=== PATIENT | male | born 1970 | race Caucasian/White ===

== ENCOUNTER → 2016-09-06 | Outpatient (CLI) | payer BC ==
[2016-09-06 11:03] LABS: Basophils % (A) 1 %; CH 29.7; CHCM 34.4; Eosinophils # (A) 0.4 k/uL (0-0.7); Eosinophils % (A) 5 %; HDW 2.94; HGB 15.8 gm/dL (13.0-17.5); Luc # (Auto) 0.14; Luc % (Auto) 2; Lymphocytes # (A) 1.8 k/uL (1.0-4.8); Lymphocytes % (A) 25 %; MCH 28.5 pg (25.0-35.0); MCHC 32.8 g/dL (31.0-37.0); MCV 86.8 fL (80.0-100.0); Mean Platelet Volume 6.9; Monocytes # (A) 0.4 k/uL (0-1.0); Monocytes % (A) 5 %; Neutrophils # (A) 4.7 k/uL (1.3-7.7); Neutrophils % (A) 63 %; RBC 5.53 m/uL (4.30-5.90); RDW 13.9 % (11.5-15.5); WBC 7.4 k/uL (3.8-10.6); WBC (Perox) 7.15
[2016-09-06 11:17] LABS: ALT 35 U/L (21-72); AST 21 U/L (17-59); Anion Gap 11 mmol/L; Blood Urea Nitrogen 16 mg/dL (9-20); Calcium 9.3 mg/dL (8.4-10.2); Carbon Dioxide 25 mmol/L (22-30); Chloride 108 mmol/L (98-107); Glucose 102 mg/dL (74-99); Non-African American GFR(MDRD) >60 (>60 ml/min/1.73 sqM); Potassium 3.9 mmol/L (3.5-5.1); Sodium 144 mmol/L (137-145)
== END ==
LOC: LABWHC1 10:36
PROVIDERS: ATTEND Psychiatry & Neurology Neurology
DX: G35 Multiple sclerosis (principal); E55.9 Vitamin D deficiency, unspecified
CPT/HCPCS: 36415; 80048; 82306; 84450; 84460; 85025

== ENCOUNTER → 2017-04-26 | Outpatient (CLI) | payer BC ==
[2017-04-26 08:06] LABS: HCT 50.4 % (39.0-53.0); HGB 16.4 gm/dL (13.0-17.5); MCH 28.2 pg (25.0-35.0); MCHC 32.5 g/dL (31.0-37.0); MCV 86.8 fL (80.0-100.0); Platelet Count 286 k/uL (150-450); RDW 13.6 % (11.5-15.5); WBC 9.2 k/uL (3.8-10.6)
[2017-04-26 15:46] LABS: Vitamin D 25 Hydroxy 15.4 ng/mL (30.0-100.0)
== END | disposition home or self-care (01) ==
LOC: LABWHC1 07:10
PROVIDERS: ATTEND Psychiatry & Neurology Neurology
DX: Z86.39 Personal history of other endocrine, nutritional and metabolic disease (principal)
CPT/HCPCS: 36415; 82306; 82310; 82607; 85027

== ENCOUNTER 2018-12-14 07:54 | Emergency (ER) | payer OTHER ==
--- NOTE | 2018-12-14 08:15 | ED ---
General Adult HPI - General Chief complaint: Abdominal Pain Stated complaint: rt abdominal pain Time Seen by Provider: 12/14/18 08:00 Source: patient, RN notes reviewed Mode of arrival: ambulatory Limitations: no limitations - History of Present Illness Initial comments: This is a 48-year-old male who presents emergency department stating that he has had right lower abdominal pain since 4:30 this morning. Patient states it woke him up at 4:30 with severe pain. Patient states yesterday prior to going to bed he felt fine. Patient denies any nausea vomiting or diarrhea. Patient denies any fever chills per patient denies any dysuria hematuria urinary frequency. Patient states pain does come and go it seems to be better if he stands. Patient states currently he has no pain. Patient denies any chest pain difficulty breathing shortness of breath. Patient denies any back pain. Patient denies any pain radiating into his groin or testicle area. - Related Data Home Medications Medication Instructions Recorded Confirmed Glatiramer Acetate [Copaxone] 40 mg SQ MOWEFR 10/15/14 12/14/18 Ibuprofen [Motrin Ib] 400 mg PO Q6H PRN 12/14/18 12/14/18 Previous Rx's Medication Instructions Recorded Hydrocodone/Acetaminophen [[place] 1 each PO Q4HR PRN #14 tab 12/14/18 5-325] Ketorolac [Toradol] 10 mg PO Q6HR #15 tab 12/14/18 Tamsulosin [Flomax] 0.4 mg PO DAILY #10 cap 12/14/18 Allergies Allergy/AdvReac Type Severity Reaction Status Date / Time No Known Allergies Allergy Verified 12/14/18 08:27 Review of Systems ROS Statement: Those systems with pertinent positive or pertinent negative responses have been documented in the HPI. ROS Other: All systems not noted in ROS Statement are negative. Past Medical History Additional Past Medical History / Comment(s): MS History of Any Multi-Drug Resistant Organisms: None Reported Past Surgical History: Appendectomy Past Psychological History: No Psychological Hx Reported Smoking Status: Never smoker Past Alcohol Use History: None Reported Past Drug Use History: None Reported General Exam - General Exam Comments Initial Comments: GENERAL: Patient is well-developed and well-nourished. Patient is nontoxic and well- hydrated and is in moderate distress. ENT: Neck is soft and supple. No significant lymphadenopathy is noted. Oropharynx is clear. Moist mucous membranes. Neck has full range of motion without eliciting any pain. EYES: The sclera were anicteric and conjunctiva were pink and moist. Extraocular movements were intact and pupils were equal round and reactive to light. Eyelids were unremarkable. PULMONARY: Unlabored respirations. Good breath sounds bilaterally. No audible rales rhonchi or wheezing was noted. CARDIOVASCULAR: There is a regular rate and rhythm without any murmurs gallops or rubs. ABDOMEN: Soft and nontender with normal bowel sounds. No palpable organomegaly was noted. There is no palpable pulsatile mass. SKIN: Skin is clear with no lesions or rashes and otherwise unremarkable. NEUROLOGIC: Patient is alert and oriented x3. Cranial nerves II through XII are grossly intact. Motor and sensory are also intact. Normal speech, volume and content. Symmetrical smile. MUSCULOSKELETAL: Normal extremities with adequate strength and full range of motion. LYMPHATICS: No significant lymphadenopathy is noted PSYCHIATRIC: Normal psychiatric evaluation. Limitations: no limitations Course Vital Signs 12/14/18 12/14/18 08:03 08:52 Temperature 97.9 F Pulse Rate 63 71 Respiratory 18 20 Rate Blood Pressure 160/119 150/104 O2 Sat by Pulse 99 98 Oximetry Medical Decision Making - Medical Decision Making CAT scan shows a 5 mm proximal ureteral stone. Patient received Toradol and Dilaudid in the emergency department pain had completely resolved after both were given. Patient will follow-up with urology. Patient will be discharged with Flomax Toradol and [place]. - Lab Data Result diagrams: 12/14/18 08:30 12/14/18 08:30 Lab Results 12/14/18 12/14/18 12/14/18 Range/Units 08:30 08:30 08:55 WBC 8.7 (3.8-10.6) k/uL RBC 5.64 (4.30-5.90) m/uL Hgb 16.2 (13.0-17.5) gm/dL Hct 47.0 (39.0-53.0) % MCV 83.2 (80.0-100.0) fL MCH 28.7 (25.0-35.0) pg MCHC 34.5 (31.0-37.0) g/dL RDW 13.6 (11.5-15.5) % Plt Count 311 (150-450) k/uL Neutrophils % 72 % Lymphocytes % 18 % Monocytes % 4 % Eosinophils % 3 % Basophils % 1 % Neutrophils # 6.3 (1.3-7.7) k/uL Lymphocytes # 1.6 (1.0-4.8) k/uL Monocytes # 0.4 (0-1.0) k/uL Eosinophils # 0.3 (0-0.7) k/uL Basophils # 0.1 (0-0.2) k/uL Sodium 143 (137-145) mmol/L Potassium 4.2 (3.5-5.1) mmol/L Chloride 109 H (98-107) mmol/L Carbon Dioxide 23 (22-30) mmol/L Anion Gap 11 mmol/L BUN 15 (9-20) mg/dL Creatinine 1.38 H (0.66-1.25) mg/dL Est GFR (CKD-EPI)AfAm 70 (>60 ml/min/1.73 sqM) Est GFR (CKD-EPI)NonAf 61 (>60 ml/min/1.73 sqM) Glucose 147 H (74-99) mg/dL Calcium 9.2 (8.4-10.2) mg/dL Total Bilirubin 0.6 (0.2-1.3) mg/dL AST 24 (17-59) U/L ALT 31 (21-72) U/L Alkaline Phosphatase 98 (38-126) U/L Total Protein 7.5 (6.3-8.2) g/dL Albumin 4.2 (3.5-5.0) g/dL Amylase 69 (30-110) U/L Lipase 139 (23-300) U/L Urine Color Yellow Urine Appearance Cloudy (Clear) Urine pH 6.0 (5.0-8.0) Ur Specific [place] 1.024 (1.001-1.035) Urine Protein Trace H (Negative) Urine Glucose (UA) Negative (Negative) Urine Ketones Negative (Negative) Urine Blood Moderate H (Negative) Urine Nitrite Negative (Negative) Urine Bilirubin Negative (Negative) Urine Urobilinogen <2.0 (<2.0) mg/dL Ur Leukocyte Esterase Small H (Negative) Urine RBC 93 H (0-5) /hpf Urine WBC 12 H (0-5) /hpf Ur Squamous Epith Cells <1 (0-4) /hpf Urine Mucus Occasional H (None) /hpf Disposition Clinical Impression: Kidney stone on right side Disposition: HOME SELF-CARE Condition: Good Instructions (If sedation given, give patient instructions): Kidney Stones (ED), How to Strain Your Urine (ED) Prescriptions: Tamsulosin [Flomax] 0.4 mg PO DAILY #10 cap Hydrocodone/Acetaminophen [[place] 5-325] 1 each PO Q4HR PRN #14 tab PRN Reason: Pain Ketorolac [Toradol] 10 mg PO Q6HR #15 tab Is patient prescribed a controlled substance at d/c from ED?: Yes When asked, does pt state using other controlled substances?: No If prescribed controlled substance>3 days was MAPS reviewed?: Prescribed <3 Days If opioid is for acute pain is fill amount 7 days or less?: Yes If Rx opioid, was Start Talking consent form obtained?: Yes Referrals: Rodney Hill MD [Primary Care Provider] - 1-2 days Time of Disposition: 10:21
[2018-12-14] MEDS: KETOROLAC 30 MG/ML 1 ML VIAL IVP STA (08:21)
[2018-12-14] MEDS: SODIUM CHLORIDE 0.9% 500 ML 500 ML IV STA (08:22)
[2018-12-14 08:37] LABS: Basophils # (A) 0.1 k/uL (0-0.2); Basophils % (A) 1 %; Eosinophils # (A) 0.3 k/uL (0-0.7); Eosinophils % (A) 3 %; HGB 16.2 gm/dL (13.0-17.5); Lymphocytes # (A) 1.6 k/uL (1.0-4.8); Lymphocytes % (A) 18 %; MCH 28.7 pg (25.0-35.0); MCHC 34.5 g/dL (31.0-37.0); MCV 83.2 fL (80.0-100.0); Mean Platelet Volume 6.5; Monocytes # (A) 0.4 k/uL (0-1.0); Monocytes % (A) 4 %; Neutrophils # (A) 6.3 k/uL (1.3-7.7); Neutrophils % (A) 72 %; Platelet Count 311 k/uL (150-450); RBC 5.64 m/uL (4.30-5.90); RDW 13.6 % (11.5-15.5); WBC 8.7 k/uL (3.8-10.6)
[2018-12-14 08:44] LABS: Albumin 4.2 g/dL (3.5-5.0); Calcium 9.2 mg/dL (8.4-10.2); Potassium 4.2 mmol/L (3.5-5.1); Total Bilirubin 0.6 mg/dL (0.2-1.3); Total Protein 7.5 g/dL (6.3-8.2)
--- NOTE | 2018-12-14 09:04 | XR ---
EXAMINATION TYPE: XR KUB DATE OF EXAM: 12/14/2018 8:45 AM CLINICAL HISTORY: Right lower quadrant pain. History of appendectomy. TECHNIQUE: Single upright image of the abdomen is obtained. COMPARISON: 11/13/2012. FINDINGS: The liver appears enlarged extending just past the iliac crest. No dilated large or small b owel. Mild colonic fecal stasis in the right hemicolon and rectum. Lung bases aerated. No suspicious calcifications are seen in the abdomen nor pelvis. Osseous structures appear grossly intact. No evide nce of pneumoperitoneum. IMPRESSION: Nonobstructive bowel gas pattern.
[2018-12-14 09:21] LABS: Appearance,Urine Cloudy (Clear); Bilirubin,Urine Negative (Negative); Blood,Urine Moderate (Negative); Color,Urine Yellow; Glucose,Urine (UA) Negative (Negative); Ketones,Urine Negative (Negative); Leukocyte Esterase,Urine Small (Negative); Mucus,Urine Occasional /hpf; Nitrite,Urine Negative (Negative); Protein,Urine Trace (Negative); RBC,Urine 93 /hpf (0-5); Specific Gravity,Urine 1.024 (1.001-1.035); Squamous Epithelial Cell,Urine <1 /hpf (0-4); Urobilinogen,Urine <2.0 mg/dL (<2.0); WBC,Urine 12 /hpf (0-5)
--- NOTE | 2018-12-14 09:55 | CT ---
EXAMINATION TYPE: CT abdomen pelvis wo con DATE OF EXAM: 12/14/2018 COMPARISON: 11/13/2012 HISTORY: 48-year-old male Pain under Rt rib cage CT DLP: 937.9 mGycm. Automated exposure control for dose reduction was used. TECHNIQUE: Contiguous axial scanning of the abdomen and pelvis without IV contrast. Coronal and sagit taina reconstructions performed. FINDINGS: Heart normal size without pericardial effusion. Strandy atelectasis in the lower lungs without pleura l effusion. Small hiatal hernia. Noncontrast appearance of the liver, gallbladder, adrenal glands, and pancreas show no gross abnormal ity. Spleen mildly enlarged at 16.4 cm on coronal series. Tiny subcentimeter cortical hypodensity anterior left kidney too small fracture CT characterization, probable tiny cyst. Punctate 3 mm calculus upper pole left kidney. Punctate 1 mm nonobstructive calculus mid to lower pole right kidney. However, the right kidney shows mild perinephric edema and mild hydronephrosis with a 5 mm calculus just beyond the right UPJ. Small to moderate-sized periumbilical hernia redemonstrated measuring 3.5 cm wide. No dilated small bowel, free fluid, or free air. Some surgical material in the right lower quadrant from prior appendectomy. Mild overall stool burden . No pericolonic inflammatory change. Bladder not distended. Prostate gland measures 4.4 cm wide. Some scattered prominent nonenlarged ingu inal lymph nodes. No abnormal fluid collection in the pelvis. Bones: Mild degenerative changes at the hips. No osseous destructive process. IMPRESSION: 1. 5 mm calculus upper right ureter just beyond the UPJ with mild obstructive uropathy. 2. Additional punctate nonobstructive calculus in each kidney. 3. Splenomegaly (16.4 cm). Clinically correlate. Small hiatal hernia.
[2018-12-14] MEDS: ONDANSETRON 4 MG/2 ML VIAL IVP STA (10:00)
[2018-12-14] MEDS: HYDROmorphone 0.5 MG/0.5 ML SYRINGE IVP STA (10:01)
[2018-12-14 10:32] VITALS: BP 109/63; PULSE 80; RESP 18; TEMP 98.3
== END 2018-12-14 10:32 | disposition home or self-care (01) ==
LOC: EC 07:54
DX: N20.0 Calculus of kidney (principal); G35 Multiple sclerosis; Z79.899 Other long term (current) drug therapy; Z98.890 Other specified postprocedural states
CPT/HCPCS: 36415; 80053; 82150; 83690; 85025; 81001; 74018; 74176; 96374; 96375 ×2; 99284; J2405; J1885; J1170

== ENCOUNTER 2020-02-13 13:45 | Emergency (ER) | payer OTHER ==
[2020-02-13 13:48] VITALS: RESP 18; TEMP 97.4
[2020-02-13] MEDS ORDERED: KETOROLAC 15 MG/ML 1 ML VIAL IVP STA (14:04)
[2020-02-13] MEDS ORDERED: ONDANSETRON 4 MG/2 ML VIAL IVP STA (14:04)
[2020-02-13] MEDS ORDERED: SODIUM CHLORIDE 0.9% 2,000 ML IV STA (14:04)
[2020-02-13] MEDS ORDERED: MORPHINE SULFATE 4 MG/ML SYRINGE IV STA (14:04)
--- NOTE | 2020-02-13 14:07 | ED ---
Abdominal Pain HPI - General Chief Complaint: Abdominal Pain Stated Complaint: ABD pain Time Seen by Provider: 02/13/20 13:54 Source: patient, RN notes reviewed, old records reviewed Mode of arrival: ambulatory Limitations: no limitations - History of Present Illness Initial Comments: 49-year-old male presents emergency department today with chief complaint of onset of the sided lower abdominal pain starting this morning and noticed he had blood in his urine. Patient reports he had history of kidney stones in the past. Patient reports this made him concerned noticing the blood in his urine. Patient reports that he never required lithotripsy or surgery to have other stones removed. He denies any fevers or chills. Denies dysuria. Denies any nausea or vomiting. - Related Data Home Medications Medication Instructions Recorded Confirmed Glatiramer Acetate [Copaxone] 40 mg SQ MOWEFR 10/15/14 12/14/18 Ibuprofen [Motrin Ib] 400 mg PO Q6H PRN 12/14/18 12/14/18 Previous Rx's Medication Instructions Recorded Hydrocodone/Acetaminophen [[place] 1 each PO Q4HR PRN #14 tab 12/14/18 5-325] Ketorolac [Toradol] 10 mg PO Q6HR #15 tab 12/14/18 Tamsulosin [Flomax] 0.4 mg PO DAILY #10 cap 12/14/18 HYDROcodone/APAP 5-325MG [[place] 1 tab PO Q6HR PRN #10 tab 02/13/20 5-325] Ibuprofen [Motrin] 600 mg PO Q8HR PRN #20 tab 02/13/20 Ondansetron Odt [Zofran Odt] 4 mg PO Q8HR PRN #12 tab 02/13/20 Tamsulosin [Flomax] 0.4 mg PO DAILY #7 cap 02/13/20 Tamsulosin [Flomax] 0.4 mg PO DAILY #7 cap 02/13/20 Allergies Allergy/AdvReac Type Severity Reaction Status Date / Time No Known Allergies Allergy Verified 02/13/20 13:48 Review of Systems ROS Statement: Those systems with pertinent positive or pertinent negative responses have been documented in the HPI. ROS Other: All systems not noted in ROS Statement are negative. Past Medical History Additional Past Medical History / Comment(s): MS History of Any Multi-Drug Resistant Organisms: None Reported Past Surgical History: Appendectomy Past Psychological History: No Psychological Hx Reported Smoking Status: Never smoker Past Alcohol Use History: None Reported Past Drug Use History: None Reported General Exam - General Exam Comments Initial Comments: 49-year-old male. Alert and oriented. No distress. Limitations: no limitations General appearance: alert, in no apparent distress Head exam: Present: atraumatic, normocephalic, normal inspection Eye exam: Present: normal appearance, PERRL, EOMI. Absent: scleral icterus, conjunctival injection, periorbital swelling ENT exam: Present: normal exam, mucous membranes moist Neck exam: Present: normal inspection. Absent: tenderness, meningismus, l ymphadenopathy Respiratory exam: Present: normal lung sounds bilaterally. Absent: respiratory distress, wheezes, rales, rhonchi, stridor Cardiovascular Exam: Present: regular rate, normal rhythm, normal heart sounds. Absent: systolic murmur, diastolic murmur, rubs, gallop, clicks GI/Abdominal exam: Present: soft, normal bowel sounds. Absent: distended, tenderness, guarding, rebound, rigid Extremities exam: Present: normal inspection, full ROM, normal capillary refill. Absent: tenderness, pedal edema, joint swelling, calf tenderness Back exam: Present: normal inspection Neurological exam: Present: alert, oriented X3, CN II-XII intact Psychiatric exam: Present: normal affect, normal mood Skin exam: Present: warm, dry, intact, normal color. Absent: rash Course Vital Signs 02/13/20 13:46 Temperature 97.4 F L Pulse Rate 65 Respiratory 18 Rate Blood Pressure 142/98 O2 Sat by Pulse 97 Oximetry Medical Decision Making - Medical Decision Making 49-year-old male presents the emergency department with chief complaint of hematuria today and left lower abdominal pain. Patient lab was reviewed and he has significant hematuria. No signs of infection with the urine. Kidney function is stable. Weight red blood cell count are within normal limits. Patient had computed tomography scan which shows a 4 mm left-sided UVJ stone. Patient informed this should likely passed without surgical intervention.. Patient computed tomography scan also mentioned umbilical fat-containing hernia. Also mentioned a 2.37 m sebaceous cyst on posterior back. This is consistent with physical exam findings. I discussed at this time Patient will be treated with nausea medicine and pain medication and that this stone should pass without surgical intervention but will be given referral urology. I discussed close follow-up and discussed return parameters. - Lab Data Result diagrams: 02/13/20 14:11 02/13/20 14:11 Lab Results 02/13/20 02/13/20 02/13/20 Range/Units 14:11 14:11 14:11 WBC 11.4 H (3.8-10.6) k/uL RBC 5.76 (4.30-5.90) m/uL Hgb 16.5 (13.0-17.5) gm/dL Hct 50.2 (39.0-53.0) % MCV 87.3 (80.0-100.0) fL MCH 28.6 (25.0-35.0) pg MCHC 32.8 (31.0-37.0) g/dL RDW 13.7 (11.5-15.5) % Plt Count 329 (150-450) k/uL Neutrophils % 81 % Lymphocytes % 12 % Monocytes % 4 % Eosinophils % 2 % Basophils % 1 % Neutrophils # 9.2 H (1.3-7.7) k/uL Lymphocytes # 1.4 (1.0-4.8) k/uL Monocytes # 0.5 (0-1.0) k/uL Eosinophils # 0.2 (0-0.7) k/uL Basophils # 0.1 (0-0.2) k/uL PT 10.0 (9.0-12.0) sec INR 1.0 (<1.2) APTT 25.0 (22.0-30.0) sec Sodium (137-145) mmol/L Potassium (3.5-5.1) mmol/L Chloride (98-107) mmol/L Carbon Dioxide (22-30) mmol/L Anion Gap mmol/L BUN (9-20) mg/dL Creatinine (0.66-1.25) mg/dL Est GFR (CKD-EPI)AfAm (>60 ml/min/1.73 sqM) Est GFR (CKD-EPI)NonAf (>60 ml/min/1.73 sqM) Glucose (74-99) mg/dL Calcium (8.4-10.2) mg/dL Total Bilirubin (0.2-1.3) mg/dL AST (17-59) U/L ALT (4-49) U/L Alkaline Phosphatase (38-126) U/L Total Protein (6.3-8.2) g/dL Albumin (3.5-5.0) g/dL Amylase (30-110) U/L Lipase (23-300) U/L Urine Color Light Red Urine Appearance Cloudy (Clear) Urine pH 8.5 H (5.0-8.0) Ur Specific [place] 1.026 (1.001-1.035) Urine Protein 1+ H (Negative) Urine Glucose (UA) Negative (Negative) Urine Ketones 2+ H (Negative) Urine Blood Large H (Negative) Urine Nitrite Negative (Negative) Urine Bilirubin Negative (Negative) Urine Urobilinogen 3.0 (<2.0) mg/dL Ur Leukocyte Esterase Trace H (Negative) Urine RBC >182 H (0-5) /hpf Urine WBC 5 (0-5) /hpf Ur Squamous Epith Cells 3 (0-4) /hpf Urine Mucus Rare H (None) /hpf 02/13/20 Range/Units 14:11 WBC (3.8-10.6) k/uL RBC (4.30-5.90) m/uL Hgb (13.0-17.5) gm/dL Hct (39.0-53.0) % MCV (80.0-100.0) fL MCH (25.0-35.0) pg MCHC (31.0-37.0) g/dL RDW (11.5-15.5) % Plt Count (150-450) k/uL Neutrophils % % Lymphocytes % % Monocytes % % Eosinophils % % Basophils % % Neutrophils # (1.3-7.7) k/uL Lymphocytes # (1.0-4.8) k/uL Monocytes # (0-1.0) k/uL Eosinophils # (0-0.7) k/uL Basophils # (0-0.2) k/uL PT (9.0-12.0) sec INR (<1.2) APTT (22.0-30.0) sec Sodium 141 (137-145) mmol/L Potassium 4.6 (3.5-5.1) mmol/L Chloride 107 (98-107) mmol/L Carbon Dioxide 26 (22-30) mmol/L Anion Gap 8 mmol/L BUN 20 (9-20) mg/dL Creatinine 1.33 H (0.66-1.25) mg/dL Est GFR (CKD-EPI)AfAm 73 (>60 ml/min/1.73 sqM) Est GFR (CKD-EPI)NonAf 63 (>60 ml/min/1.73 sqM) Glucose 124 H (74-99) mg/dL Calcium 9.4 (8.4-10.2) mg/dL Total Bilirubin 1.3 (0.2-1.3) mg/dL AST 35 (17-59) U/L ALT 26 (4-49) U/L Alkaline Phosphatase 83 (38-126) U/L Total Protein 7.5 (6.3-8.2) g/dL Albumin 4.4 (3.5-5.0) g/dL Amylase 57 (30-110) U/L Lipase 76 (23-300) U/L Urine Color Urine Appearance (Clear) Urine pH (5.0-8.0) Ur Specific [place] (1.001-1.035) Urine Protein (Negative) Urine Glucose (UA) (Negative) Urine Ketones (Negative) Urine Blood (Negative) Urine Nitrite (Negative) Urine Bilirubin (Negative) Urine Urobilinogen (<2.0) mg/dL Ur Leukocyte Esterase (Negative) Urine RBC (0-5) /hpf Urine WBC (0-5) /hpf Ur Squamous Epith Cells (0-4) /hpf Urine Mucus (None) /hpf - Radiology Data Radiology results: report reviewed CT shows a 4 mm calculus just be on the left UVJ with minimal instructed uropathy. Small to moderate-sized umbilical hernia measuring 2.9 cm. 2.3 cystic cutaneous subcutaneous lesion on the right posterior mid back. Correlate with physical exam findings. Probable sebaceous cyst. Disposition Clinical Impression: Left ureteral stone Disposition: HOME SELF-CARE Condition: Good Instructions (If sedation given, give patient instructions): Ureteral Stones (ED) Additional Instructions: Please use medication as discussed. Please follow up with family doctor if symptoms have not improved over the next two days. Please return to the emergency room if your symptoms increase or worsen or for any other concerns. Prescriptions: Tamsulosin [Flomax] 0.4 mg PO DAILY #7 cap Tamsulosin [Flomax] 0.4 mg PO DAILY #7 cap Ibuprofen [Motrin] 600 mg PO Q8HR PRN #20 tab PRN Reason: Pain HYDROcodone/APAP 5-325MG [[place] 5-325] 1 tab PO Q6HR PRN #10 tab PRN Reason: Pain Ondansetron Odt [Zofran Odt] 4 mg PO Q8HR PRN #12 tab PRN Reason: Nausea Is patient prescribed a controlled substance at d/c from ED?: Yes If prescribed controlled substance>3 days was MAPS reviewed?: Prescribed <3 Days If opioid is for acute pain is fill amount 7 days or less?: Yes If Rx opioid, was Start Talking consent form obtained?: Yes Referrals: Rodney Hill MD [Primary Care Provider] - 1-2 days Fausto Burciaga MD [STAFF PHYSICIAN] - 1-2 days Time of Disposition: 15:09
[2020-02-13 14:22] LABS: Basophils # (A) 0.1 k/uL (0-0.2); Basophils % (A) 1 %; Eosinophils # (A) 0.2 k/uL (0-0.7); Eosinophils % (A) 2 %; HCT 50.2 % (39.0-53.0); HGB 16.5 gm/dL (13.0-17.5); Lymphocytes # (A) 1.4 k/uL (1.0-4.8); Lymphocytes % (A) 12 %; MCH 28.6 pg (25.0-35.0); MCHC 32.8 g/dL (31.0-37.0); MCV 87.3 fL (80.0-100.0); Mean Platelet Volume 7.2; Monocytes # (A) 0.5 k/uL (0-1.0); Monocytes % (A) 4 %; Neutrophils # (A) 9.2 k/uL (1.3-7.7); Neutrophils % (A) 81 %; Platelet Count 329 k/uL (150-450); RBC 5.76 m/uL (4.30-5.90); RDW 13.7 % (11.5-15.5); WBC 11.4 k/uL (3.8-10.6)
[2020-02-13 14:30] LABS: Appearance,Urine Cloudy (Clear); Bilirubin,Urine Negative (Negative); Blood,Urine Large (Negative); Color,Urine Light Red; Glucose,Urine (UA) Negative (Negative); Ketones,Urine 2+ (Negative); Leukocyte Esterase,Urine Trace (Negative); Mucus,Urine Rare /hpf; Nitrite,Urine Negative (Negative); PH, Urine 8.5 (5.0-8.0); Protein,Urine 1+ (Negative); RBC,Urine >182 /hpf (0-5); Specific Gravity,Urine 1.026 (1.001-1.035); Squamous Epithelial Cell,Urine 3 /hpf (0-4); WBC,Urine 5 /hpf (0-5)
[2020-02-13 14:34] LABS: Albumin 4.4 g/dL (3.5-5.0); Calcium 9.4 mg/dL (8.4-10.2); Total Bilirubin 1.3 mg/dL (0.2-1.3); Total Protein 7.5 g/dL (6.3-8.2)
[2020-02-13 14:43] LABS: Potassium 4.6 mmol/L (3.5-5.1)
--- NOTE | 2020-02-13 14:53 | CT ---
EXAMINATION TYPE: CT abdomen pelvis wo con DATE OF EXAM: 02/13/2020 COMPARISON: 12/14/2018 HISTORY: 49-year-old male LLQ pain with hematuria. CT DLP: 1198.4 mGycm. Automated exposure control for dose reduction was used. TECHNIQUE: Contiguous axial scanning of the abdomen and pelvis without IV contrast. Coronal and sagit taina reconstructions performed. FINDINGS: The heart is normal size without pericardial effusion. A 2.3 cm cystic cutaneous/subcutaneous lesion right posterior mid back. Lung bases clear without pleural effusion. Noncontrast appearance of the liver, gallbladder, adrenal glands, right kidney, and pancreas show no gross abnormality. Spleen is borderline in size at 13.7 cm. Tiny 1 cm hypodense cortical lobulation anterior mid left kidney is unchanged from 12/14/2018 suggestin g a benign cortical cyst. Mild fullness of the left-sided renal collecting system with a 4 mm calculu s just beyond the left UPJ. No dilated small bowel, free fluid, or free air. There is a small to moderate-sized fatty umbilical h ernia measuring 2.9 cm wide. Surgical material in the right lower quadrant likely related to prior appendectomy. Mild overall stoo l burden. No pericolonic inflammatory change. Bladder collapsed. No abnormal fluid collection in the pelvis or pelvic lymphadenopathy. Slightly pat ulous right inguinal canal. Bones: Mild degenerative change at the hips. Mild facet arthropathy lower lumbar spine. IMPRESSION: 1. A 4 mm calculus just beyond the left UVJ with minimal obstructive uropathy. 2. Small to moderate-sized fatty umbilical hernia measuring 2.9 cm wide. 3. A 2.3 cm cystic cutaneous/subcutaneous lesion along the right posterior mid back. Correlate with physical exam findings. Probable sebaceous cyst.
[2020-02-13] MEDS ORDERED: TAMSULOSIN 0.4 MG CAP.ER.24H PO STA (15:06)
[2020-02-13] MEDS ORDERED: ONDANSETRON 4 MG ODT STARTER PACK 2 TAB BTL PO STA (15:23)
[2020-02-13] MEDS ORDERED: ACET/COD 300 MG/30 MG STARTER PACK 6 TAB BTL PO STA (15:24)
[2020-02-13 15:37] VITALS: BP 123/85; PULSE 87
== END 2020-02-13 15:36 | disposition home or self-care (01) ==
LOC: EC 13:45
DX: N20.1 Calculus of ureter (principal); K42.9 Umbilical hernia without obstruction or gangrene; L72.3 Sebaceous cyst; G35 Multiple sclerosis; Z79.899 Other long term (current) drug therapy; Z90.89 Acquired absence of other organs; Z87.442 Personal history of urinary calculi
CPT/HCPCS: 36415; 80053; 82150; 83690; 85025; 85610; 85730; 81001; 74176; 99284; 96374; 96375 ×2; 96361; J2270; J2405; J1885; S0119

== ENCOUNTER → 2021-07-07 | Outpatient (CLI) | payer BC ==
--- NOTE | 2021-07-07 10:07 | MR ---
EXAMINATION TYPE: MR brain wo/w con DATE OF EXAM: 07/07/2021 COMPARISON: Unavailable HISTORY: MS follow up. Diagnosed 10yrs ago TECHNIQUE: Multiplanar, multisequence images of the brain and brainstem is performed without and with IV contras t, utilizing 11.5 mL intravenous Gadavist . FINDINGS: Diffusion weighted images demonstrate no evidence of a recent infarct or other diffusion ab normality. There is prominent CSF space present at the convexity some suggestion of mass effect, fin dings could represent arachnoid cyst. Scattered subcortical, deep white matter hyperintensities prese nt on inversion recovery T2-weighted sequences, approximately 5 lesions present, largest in the periv entricular white matter adjacent to the posterior horn of the left lateral ventricle, axial image 15, lesion measures 7 x8 mm. The ventricular system and cisternal spaces are normal in size and appearan ce. The brain volume is age appropriate. Midline structures demonstrate normal morphology, with a partially empty sella noted. Posterior to t he internal auditory canal on the left there is a focus of hyperintensity and inversion recovery T2-w eighted sequences, intermediate signal on T1, indeterminate finding. The craniocervical junction appe ars within normal limits. Post contrast images demonstrate no abnormal enhancement. The dural venous sinuses appear patent. The visualized sinuses are clear and the globes are intact. Some inflammatory change noted in the right mastoid air cells IMPRESSION: Nonspecific foci of demyelination may be related to patient's multiple sclerosis. Large C SF space at the convexity with some local mass effect, comparison with previous exam may be of benefi t to assess for any interval change if available. Abnormal signal posterior to the internal auditory canal on the left, temporal bone CT may be of benefit, findings may be inflammatory as in the right m astoid air cells
== END | disposition home or self-care (01) ==
LOC: RADMRIMAIN 08:23
PROVIDERS: ATTEND Psychiatry & Neurology Neurology
DX: G35 Multiple sclerosis (principal)
CPT/HCPCS: 70553; A9585

== ENCOUNTER 2021-09-24 09:27 | Inpatient (IN) | payer BC ==
[2021-09-24] MEDS ORDERED: SODIUM CHLORIDE 0.9% 500 ML 500 ML IV STA (09:55)
--- NOTE | 2021-09-24 10:00 | ED ---
Abdominal Pain HPI <Wilman Cavanaugh - Last Filed: 09/24/21 13:23> - General Source: patient, RN notes reviewed, old records reviewed Mode of arrival: ambulatory Limitations: no limitations - History of Present Illness -: days(s) (1) Location: periumbilical Radiation: none Severity scale (1-10): 6 Consistency: intermittent, now resolved Improves With: other (Immobilization or sitting) Worsens With: movement (Bending over or lifting) Associated Symptoms: denies other symptoms <Will Rosado - Last Filed: 09/24/21 14:20> - General Chief Complaint: Abdominal Pain Stated Complaint: Abd pain Time Seen by Provider: 09/24/21 09:50 - History of Present Illness Initial Comments: Pleasant 50-year-old male, alert and oriented 4, presents to the emergency room with complaints of abdominal pain. Patient states he has a history of umbilical hernia that was found on CT in 2019 and has not followed up related to family matters. Patient states he bent over yesterday to cook pickled meat something and felt sharp pain. He denies any nausea, vomiting, diarrhea or fevers. No chest pain or shortness of breath. He does have a history of multiple sclerosis that is well controlled. He has a history of appendectomy. He has an appointment with his primary care doctor on Monday morning but states that he is concerned about the abdominal hernia and states that at times his bellybutton protrudes. His la st normal bowel movement was today. (Will Rosado) - Related Data Home Medications Medication Instructions Recorded Confirmed Cholecalciferol [Vitamin D3 (25 25 mcg PO DAILY 09/24/21 09/24/21 Mcg = 1000 Iu)] allopurinoL [Zyloprim] 300 mg PO DAILY 09/24/21 09/24/21 Allergies Allergy/AdvReac Type Severity Reaction Status Date / Time No Known Allergies Allergy Verified 09/24/21 11:36 Review of Systems ROS Other: All systems not noted in ROS Statement are negative. <Wilman Cavanaugh - Last Filed: 09/24/21 13:23> ROS Other: All systems not noted in ROS Statement are negative. <Will Rosado - Last Filed: 09/24/21 14:20> ROS Statement: Those systems with pertinent positive or pertinent negative responses have been documented in the HPI. Past Medical History Additional Past Medical History / Comment(s): MS History of Any Multi-Drug Resistant Organisms: None Reported Past Surgical History: Appendectomy Past Psychological History: No Psychological Hx Reported Smoking Status: Never smoker Past Alcohol Use History: None Reported Past Drug Use History: None Reported <Will Rosado - Last Filed: 09/24/21 14:20> General Exam Limitations: no limitations General appearance: alert, in no apparent distress Head exam: Present: atraumatic Eye exam: Absent: scleral icterus, conjunctival injection Neck exam: Present: normal inspection, full ROM. Absent: tenderness, meningismus Respiratory exam: Present: normal lung sounds bilaterally. Absent: respiratory distress, accessory muscle use Cardiovascular Exam: Present: regular rate, normal heart sounds GI/Abdominal exam: Present: soft, tenderness, hernia. Absent: rebound, rigid Extremities exam: Present: normal inspection, normal capillary refill. Absent: tenderness, pedal edema Neurological exam: Present: alert, oriented X3, normal gait Psychiatric exam: Present: normal affect, normal mood Skin exam: Present: warm, dry, normal color. Absent: cyanosis, diaphoretic, petechiae, pallor <Will Rosado - Last Filed: 09/24/21 14:20> Course Vital Signs 09/24/21 09/24/21 09:29 10:31 Temperature 98.1 F Pulse Rate 75 71 Respiratory 16 18 Rate Blood Pressure 163/99 144/104 O2 Sat by Pulse 96 94 L Oximetry Medical Decision Making - Lab Data Result diagrams: 09/24/21 10:10 09/24/21 10:27 <Wilman Cavanaugh - Last Filed: 09/24/21 13:23> - Lab Data Result diagrams: 09/24/21 10:10 09/24/21 10:27 <Will Rosado - Last Filed: 09/24/21 14:20> - Medical Decision Making Patient reevaluated by myself, Dr. Cavanaugh. Patient does have umbilical hernia that does not appear hard however is extremely tender. I was able to reduce this partially with approximately 50-60% improvement of patient's symptoms. CT results reviewed with Dr. Alvarez who will admit, clear liquid diet, nothing by mouth after midnight. She does request EKG and antibiotics. (Wilman Cavanaugh) CT shows an enlarging omental fat umbilical hernia measuring 5 cm with new signs of inflammation along hernial sac. Concerns for incarceration or s trangulation. Labs are unremarkable. Vital signs are stable. On physical exam umbilical hernia is able to be reduced however when patient sits up he has increasing pain and hernia returns. Patient states that the pain resolves when he sits back. Case discussed with Dr. Cavanaugh who examined the patient himself. Patient will be admitted to the hospital to Dr. Woodward. Patient is agreeable to this plan of care. (Will Rosado) - Lab Data Lab Results 09/24/21 09/24/21 Range/Units 10:10 10:27 WBC 7.4 (3.8-10.6) k/uL RBC 5.80 (4.30-5.90) m/uL Hgb 16.9 (13.0-17.5) gm/dL Hct 50.3 (39.0-53.0) % MCV 86.7 (80.0-100.0) fL MCH 29.2 (25.0-35.0) pg MCHC 33.6 (31.0-37.0) g/dL RDW 14.2 (11.5-15.5) % Plt Count 285 (150-450) k/uL MPV 7.2 Neutrophils % 69 % Lymphocytes % 20 % Monocytes % 6 % Eosinophils % 3 % Basophils % 1 % Neutrophils # 5.1 (1.3-7.7) k/uL Lymphocytes # 1.5 (1.0-4.8) k/uL Monocytes # 0.4 (0-1.0) k/uL Eosinophils # 0.2 (0-0.7) k/uL Basophils # 0.1 (0-0.2) k/uL Sodium 143 (137-145) mmol/L Potassium 4.1 (3.5-5.1) mmol/L Chloride 109 H (98-107) mmol/L Carbon Dioxide 27 (22-30) mmol/L Anion Gap 7 mmol/L BUN 14 (9-20) mg/dL Creatinine 1.10 (0.66-1.25) mg/dL Est GFR (CKD-EPI)AfAm >90 (>60 ml/min/1.73 sqM) Est GFR (CKD-EPI)NonAf 79 (>60 ml/min/1.73 sqM) Glucose 108 H (74-99) mg/dL Calcium 9.2 (8.4-10.2) mg/dL Total Bilirubin 0.6 (0.2-1.3) mg/dL AST 26 (17-59) U/L ALT 26 (4-49) U/L Alkaline Phosphatase 88 (38-126) U/L Total Protein 7.7 (6.3-8.2) g/dL Albumin 4.5 (3.5-5.0) g/dL Amylase 73 (30-110) U/L Lipase 120 (23-300) U/L Disposition <Wilman Cavanaugh - Last Filed: 09/24/21 13:23> Decision Date: 09/24/21 Decision Time: 13:52 <Will Rosado - Last Filed: 09/24/21 14:20> Clinical Impression: Incarcerated umbilical hernia Disposition: ADMITTED IP TO THIS HOSP
[2021-09-24 10:21] LABS: Basophils # (A) 0.1 k/uL (0-0.2); Basophils % (A) 1 %; Eosinophils # (A) 0.2 k/uL (0-0.7); Eosinophils % (A) 3 %; HCT 50.3 % (39.0-53.0); HGB 16.9 gm/dL (13.0-17.5); Lymphocytes # (A) 1.5 k/uL (1.0-4.8); Lymphocytes % (A) 20 %; MCH 29.2 pg (25.0-35.0); MCHC 33.6 g/dL (31.0-37.0); MCV 86.7 fL (80.0-100.0); Mean Platelet Volume 7.2; Monocytes # (A) 0.4 k/uL (0-1.0); Monocytes % (A) 6 %; Neutrophils # (A) 5.1 k/uL (1.3-7.7); Neutrophils % (A) 69 %; Platelet Count 285 k/uL (150-450); RDW 14.2 % (11.5-15.5); WBC 7.4 k/uL (3.8-10.6)
[2021-09-24 10:50] LABS: ALT 26 U/L (4-49); AST 26 U/L (17-59); African American GFR (CKD) >90 (>60 ml/min/1.73 sqM); Albumin 4.5 g/dL (3.5-5.0); Alkaline Phosphatase 88 U/L (38-126); Amylase 73 U/L (30-110); Anion Gap 7 mmol/L; Blood Urea Nitrogen 14 mg/dL (9-20); Calcium 9.2 mg/dL (8.4-10.2); Carbon Dioxide 27 mmol/L (22-30); Chloride 109 mmol/L (98-107); Glucose 108 mg/dL (74-99); Lipase 120 U/L (23-300); Non-African American GFR(CKD) 79 (>60 ml/min/1.73 sqM); Potassium 4.1 mmol/L (3.5-5.1); Sodium 143 mmol/L (137-145); Total Bilirubin 0.6 mg/dL (0.2-1.3); Total Protein 7.7 g/dL (6.3-8.2)
--- NOTE | 2021-09-24 11:34 | CT ---
EXAMINATION TYPE: CT abdomen pelvis w con DATE OF EXAM: 09/24/2021 COMPARISON: 02/13/2020 HISTORY: 50-year-old now abdominal pain, hx of hernia TECHNIQUE: Contiguous axial scanning of the abdomen and pelvis following administration of 100 ml Iso duane 300 IV contrast. Delayed images through the kidneys and coronal/sagittal reconstructions perform ed. CT DLP: 2121.9 mGycm Automated exposure control for dose reduction was used. FINDINGS: The heart is borderline in size without pericardial effusion. Mild dependent atelectasis po sterior lung bases without pleural effusion. Incidental cutaneous/subcutaneous cystic lesion posterior lower right thoracic wall measuring 2.0 cm. Correlate for possible small cutaneous/subcutaneous abscess or sebaceous cyst. There is a tiny hiatal hernia. Liver mildly enlarged 19.7 cm versus 18.8 cm, previously. No focal lesion or biliary ductal dilatatio n. Portal venous system is patent. Gallbladder, adrenal glands, and pancreas within normal limits. Splenomegaly at 16.5 cm measured on coronal series versus 15.8 cm, previously. A few small benign cortical cysts within both kidneys measuring up to 1.0 cm. Symmetric uptake and ex cretion of contrast from both kidneys. No dilated small bowel, free fluid, or free air. Scattered small mesenteric lymph nodes. No mesenteri c or retroperitoneal lymphadenopathy. Mild stool burden. Some surgical material right lower quadrant likely relating to prior appendectomy. No pericolic inflammatory change. Redemonstrated is an umbilical hernia. This contains omental fat and is larger at 5.1 cm wide versus 3.5 cm wide, previously. The abdominal wall defect measures 2.2 cm wide versus 1.9 cm, previously. Th ere is increasing herniating omental fat now containing fluid and probably some omental vasculature a s well. Bladder partially distended. Prostate gland enlargement 5.2 cm wide. Patulous right inguinal canal. N o abnormal fluid collection in the pelvis or pelvic lymphadenopathy. Bones: [facility] in the lower thoracic spine with mild degenerative disc disease. IMPRESSION: 1. ENLARGING OMENTAL FAT-CONTAINING UMBILICAL HERNIA CURRENTLY 5.1 CM VERSUS 3.1 CM, PREVIOUSLY. THER E ARE NEW SIGNS OF INFLAMMATION WITHIN THE HERNIA SAC ALONG WITH FLUID. CORRELATE FOR FATTY HERNIA IN CARCERATION/STRANGULATION. 2. A 2.0 CM CUTANEOUS/SUBCUTANEOUS CYSTIC LESION POSTERIOR LOWER RIGHT THORACIC WALL. CORRELATE WITH PHYSICAL EXAM FINDINGS FOR POSSIBLE SEBACEOUS CYST OR SMALL CUTANEOUS ABSCESS. 3. HEPATOSPLENOMEGALY (LIVER 19.7 CM AND SPLEEN 16.5 CM). SLIGHTLY INCREASED FROM PRIOR (MEASUREMENTS ABOVE). CLINICALLY CORRELATE. 4. SMALL HIATAL HERNIA AND PROSTATOMEGALY AT 5.2 CM WIDE.
[2021-09-24] MEDS ORDERED: AMPICILLIN-SULBACTAM 1.5 GM in SODIUM CHLORIDE 0.9% 50 ML IVPB STA (13:25)
[2021-09-24] MEDS ORDERED: NALOXONE 0.4 MG/ML 1 ML VIAL IV PRN (13:49)
[2021-09-24] MEDS: PANTOPRAZOLE 40 MG/10 ML VIAL IV SCH (14:09)
[2021-09-24] MEDS: SODIUM CHLORIDE 0.9% 1,000 ML IV SCH (14:10)
[2021-09-24] MEDS: AMPICILLIN-SULBACTAM 1.5 GM in SODIUM CHLORIDE 0.9% 50 ML IVPB SCH (20:39)
[2021-09-25] MEDS: AMPICILLIN-SULBACTAM 1.5 GM in SODIUM CHLORIDE 0.9% 50 ML IVPB SCH ×4 (01:56→20:47)
[2021-09-25] MEDS: SODIUM CHLORIDE 0.9% 1,000 ML IV SCH (05:23)
[2021-09-25] MEDS: CHOLECALCIFEROL 25 MCG (1000 IU) TABLET PO SCH (07:10)
[2021-09-25] MEDS: allopurinoL 300 MG TAB PO SCH (07:10)
[2021-09-25 08:41] LABS: Basophils # (A) 0.05 X 10*3/uL (0.00-0.10); Basophils % (A) 0.6 %; Eosinophils # (A) 0.24 X 10*3/uL (0.04-0.35); Eosinophils % (A) 3.1 %; HGB 15.4 g/dL (13.0-17.0); Immature Grans, Automated 0.6 %; Lymphocytes # (A) 1.56 X 10*3/uL (0.90-5.00); Lymphocytes % (A) 19.9 %; MCH 27.6 pg (27.0-32.0); MCHC 32.1 g/dL (32.0-37.0); Mean Platelet Volume 9.8 fL (9.5-12.2); Monocytes # (A) 0.52 X 10*3/uL (0.20-1.00); Monocytes % (A) 6.6 %; NRBC Per 100 WBC 0 /100 WBCS (0.0-0.0); Neutrophils % (A) 69.2 %; Platelet Count 258 X 10*3/uL (140-440); RBC 5.58 X 10*6/uL (4.40-5.60); RDW 13.6 % (11.5-14.5); WBC 7.82 X 10*3/uL (4.50-10.00)
[2021-09-25 08:49] LABS: African American GFR (CKD) 90.9 (60.0-200.0); Anion Gap 9.5 mmol/L (10.00-18.00); BUN/Creat Ratio 10.55 Ratio (12.00-20.00); Blood Urea Nitrogen 11.6 mg/dL (9.0-27.0); Calcium 8.8 mg/dL (8.7-10.3); Carbon Dioxide 27.5 mmol/L (20.0-27.5); Non-African American GFR(CKD) 78.4 (60.0-200.0); Potassium 3.5 mmol/L (3.5-5.5)
[2021-09-25] MEDS: PANTOPRAZOLE 40 MG/10 ML VIAL IV SCH (09:40)
[2021-09-25] MEDS ORDERED: SODIUM CHLORIDE 0.9% 1,000 ML IV SCH (11:45)
[2021-09-25] MEDS ORDERED: HYDROmorphone 1 MG/ML 1 ML SYRINGE IVP PRN (11:56)
--- NOTE | 2021-09-25 11:56 | P.GSHP ---
History of Present Illness H&P Date: 09/25/21 CHIEF COMPLAINT: Incarcerated hernia HISTORY OF PRESENT ILLNESS: The patient is a 50 year old male who comes in acutely with swelling and pain along the umbilicus due to incarcerated hernia. Emergency room provider attempted to reduce the hernia without success. He reports the pain became severe in the past 2 days. He reports having his hernia at least for 5 years. At his job, he often lifts over 10 pounds including bending. The pain became intolerable since his presentation. He has a family history of abdominal wall hernias including his father recently passed due to coronavirus pneumonia. No recent blood in stools. Patient's admitted due to incarcerated hernia with possible strangulation. PAST MEDICAL HISTORY: See list and reviewed PAST SURGICAL HISTORY: See list and reviewed MEDICATIONS: See list and reviewed ALLERGIES: See list and reviewed SOCIAL HISTORY: See list and reviewed FAMILY HISTORY: See list and reviewed REVIEW OF ORGAN SYSTEMS: CONSTITUTIONAL: No fevers or chills. Obese, BMI 32.7. EYES: Denies any trouble with vision. No glasses. HEENT: No difficulties with hearing. No nosebleeds. No difficulty swallowing. RESPIRATORY: Denies pneumonia. Denies any troubles with breathing or dyspnea on exertion. CARDIOVASCULAR: Denies any chest pain, palpitations, or recent heart attacks. GASTROINTESTINAL: Denies fatty food intolerance. Denies change in bowel habits and gas bloat. GENITOURINARY: Denies any blood in urine or increased urinary frequency. NEUROLOGICAL: Denies any numbness or tingling along the distal extremities. No seizure disorders or headaches. MUSCULOSKELETAL: History of multiple sclerosis and gout. SKIN: No current skin cancer. No rash. PSYCHIATRIC: Denies current depression or suicidal thoughts. ENDOCRINE: Denies current thyroid disorders. Denies any blood sugar glucose intolerance. HEME/LYMPHATIC: Denies any lumps and bumps around the neck. No recent deep venous thrombosis. ALLERGY/IMMUNOLOGY: No immunoglobulin therapy. No immune deficiencies. BREAST: Denies current breast lumps, pain or nipple discharge. PHYSICAL EXAM: VITALS: Reviewed CONSTITUTIONAL: Well developed and in no acute distress. EYES: Conjuctivae without sclera icterus. Extraocular movements grossly intact. HEAD, EARS, NOSE, THROAT: Moist buccal mucosa. Head is atraumatic, normocephalic. Hears conversational speech. No nasal drainage. NECK: Supple. No JV distention. No thyroidomegaly. RESPIRATORY: Non-labored respirations and equal bilateral excursions. No gross wheezes. CARDIOVASCULAR: Palpable 2+ radial pulses. ABDOMEN: Incarcerated umbilical hernia of the umbilicus. No cellulitis. LYMPH: No neck lymphadenopathy. MUSCULOSKELETAL: No clubbing cyanosis or edema. SKIN: Warm and well perfused with good skin turgor. NEUROLOGIC: Cranial nerves II through XII grossly intact. No focal or lateralizing signs. PSYCH: Appropriate affect. Alert and oriented to person, place and time. Displays appropriate insight. EKG: Reviewed. Normal sinus rhythm. CLINCAL LABS: Reviewed. WBC normal 7.8. Hemoglobin normal 15.4. IMAGING: Independently reviewed. CT of the abdomen and pelvis reviewed demonstrating inflammatory changes of the umbilicus with sac containing ventral hernia. This is my independent interpretation. RADIOLOGY: Report reviewed. CT abdomen and pelvis with 5 cm incarcerated ventral hernia with inflammatory changes. Hepatosplenomegaly with hiatal hernia. ASSESSMENT: 1. Incarcerated fat-containing ventral hernia 2. Gout 3. Multiple sclerosis PLAN: 1. IV fluid hydration. 2. Robotic ventral hernia repair with mesh placement described. 3. IV antibiotics for incarcerated versus strangulated hernia to decrease risk for mesh infection. 4. Inpatient hospitalization over 2 nights due to incarcerated symptomatic ventral hernia 5. Postoperative recovery of 4 weeks reviewed with 4 pound lifting restriction. 6. Dietary guidelines also reviewed for perioperative recovery, protein intake 90 g daily. ADVANCE DIRECTIVE: Thank you for this kind consultation. Past Medical History Past Medical History: Hyperlipidemia, Neurologic Disorder Additional Past Medical History / Comment(s): MS, gout History of Any Multi-Drug Resistant Organisms: None Reported Past Surgical History: Appendectomy Additional Past Surgical History / Comment(s): hernia Past Psychological History: No Psychological Hx Reported Smoking Status: Never smoker Past Alcohol Use History: None Reported Past Drug Use History: None Reported - Past Family History Mother Family Medical History: Hypertension Additional Family Medical History / Comment(s): cardiac stents Father Family Medical History: Congestive Heart Failure (CHF), CVA/TIA, Liver Disease Medications and Allergies Home Medications Medication Instructions Recorded Confirmed Type Cholecalciferol [Vitamin D3 (25 25 mcg PO DAILY 09/24/21 09/24/21 History Mcg = 1000 Iu)] allopurinoL [Zyloprim] 300 mg PO DAILY 09/24/21 09/24/21 History Allergies Allergy/AdvReac Type Severity Reaction Status Date / Time No Known Allergies Allergy Verified 09/24/21 11:36 Surgical - Exam Vital Signs Temp Pulse Resp BP Pulse Ox 98.1 F 75 16 163/99 96 09/24/21 09:29 09/24/21 09:29 09/24/21 09:29 09/24/21 09:29 09/24/21 09:29 Results - Labs 09/25/21 05:58 09/25/21 05:58 Abnormal Lab Results - Last 24 Hours (Table) 09/24/21 09/25/21 09/25/21 Range/Units 10:27 05:58 05:58 Immature Gran # 0.05 H (0.00-0.04) X 10*3/uL Chloride 109 H (98-107) mmol/L Anion Gap 9.50 L (10.00-18.00) mmol/L BUN/Creatinine Ratio 10.55 L (12.00-20.00) Ratio Glucose 108 H (74-99) mg/dL Diabetes panel 09/24/21 09/25/21 Range/Units 10:27 05:58 Sodium 143 142 (137-145) mmol/L Potassium 4.1 3.5 (3.5-5.1) mmol/L Chloride 109 H 105 (98-107) mmol/L Carbon Dioxide 27 27.5 (22-30) mmol/L BUN 14 11.6 (9-20) mg/dL Creatinine 1.10 1.1 (0.66-1.25) mg/dL Glucose 108 H 92 (74-99) mg/dL Calcium 9.2 8.8 (8.4-10.2) mg/dL AST 26 (17-59) U/L ALT 26 (4-49) U/L Alkaline Phosphatase 88 (38-126) U/L Total Protein 7.7 (6.3-8.2) g/dL Albumin 4.5 (3.5-5.0) g/dL Calcium panel 09/24/21 09/25/21 Range/Units 10:27 05:58 Calcium 9.2 8.8 (8.4-10.2) mg/dL Albumin 4.5 (3.5-5.0) g/dL Pituitary panel 09/24/21 09/25/21 Range/Units 10:27 05:58 Sodium 143 142 (137-145) mmol/L Potassium 4.1 3.5 (3.5-5.1) mmol/L Chloride 109 H 105 (98-107) mmol/L Carbon Dioxide 27 27.5 (22-30) mmol/L BUN 14 11.6 (9-20) mg/dL Creatinine 1.10 1.1 (0.66-1.25) mg/dL Glucose 108 H 92 (74-99) mg/dL Calcium 9.2 8.8 (8.4-10.2) mg/dL Adrenal panel 09/24/21 09/25/21 Range/Units 10:27 05:58 Sodium 143 142 (137-145) mmol/L Potassium 4.1 3.5 (3.5-5.1) mmol/L Chloride 109 H 105 (98-107) mmol/L Carbon Dioxide 27 27.5 (22-30) mmol/L BUN 14 11.6 (9-20) mg/dL Creatinine 1.10 1.1 (0.66-1.25) mg/dL Glucose 108 H 92 (74-99) mg/dL Calcium 9.2 8.8 (8.4-10.2) mg/dL Total Bilirubin 0.6 (0.2-1.3) mg/dL AST 26 (17-59) U/L ALT 26 (4-49) U/L Alkaline Phosphatase 88 (38-126) U/L Total Protein 7.7 (6.3-8.2) g/dL Albumin 4.5 (3.5-5.0) g/dL
--- NOTE | 2021-09-25 11:58 | CONS ---
CONSULTATION This patient is a 50-year-old white male. I am consulted for medical management. He takes zyloprim for gout. He has had a chronic hernia, which is more painful now. He hurt it; he was bending over, picking something up at work, and he had severe periumbilical pain over this hernia area. He was admitted to rule out possible surgery for incarcerated hernia. Home medicines have been restarted. PHYSICAL EXAMINATION: Temperature 98.4, pulse , respiratory rate is 20, blood pressure 140s to 150s over 70s to 90s. Saturation on room air 97%. He stands up, shakes my hand. No acute distress. Cardiovascular S1, S2. Lungs clear. Psych: Fair mood and affect. Neurologic: Cranial nerves intact. Abdominal exam: He has tenderness to any palpation over the umbilical hernia area. Hematology negative Homans. Skin is clean, dry, intact. ASSESSMENT: 1. Possible incarcerated hernia. 2. Hypertension. 3. Gout. Please see please see further orders. Possible surgery today. He is cleared for surgery as far as I am concerned; he will be okay with surgery if Dr. Woodward wants to take him to surgery; it is cleared with me. MMODL / IJN: [id number] /
[2021-09-25] MEDS: 0.9% NACL WITH KCL 20 MEQ/L 1,000 ML IV SCH (12:48)
[2021-09-25] MEDS: ENOXAPARIN 30 MG/0.3 ML SYRINGE SQ SCH (12:50)
[2021-09-26] MEDS: AMPICILLIN-SULBACTAM 1.5 GM in SODIUM CHLORIDE 0.9% 50 ML IVPB SCH ×4 (01:03→20:26)
[2021-09-26] MEDS: 0.9% NACL WITH KCL 20 MEQ/L 1,000 ML IV SCH ×3 (01:03→13:29)
[2021-09-26] MEDS: PANTOPRAZOLE 40 MG/10 ML VIAL IV SCH (08:20)
[2021-09-26] MEDS: allopurinoL 300 MG TAB PO SCH (09:49)
[2021-09-26] MEDS: CHOLECALCIFEROL 25 MCG (1000 IU) TABLET PO SCH (09:49)
[2021-09-26] MEDS: ENOXAPARIN 30 MG/0.3 ML SYRINGE SQ SCH (13:04)
[2021-09-26] MEDS: LOSARTAN-HCTZ 50-12.5 MG 1 EACH TAB PO SCH (13:09)
--- NOTE | 2021-09-26 14:07 | P.PN ---
Subjective Progress Note Date: 09/26/21 CHIEF COMPLAINT: Incarcerated hernia HISTORY OF PRESENT ILLNESS: The patient is a 50 year old male who comes in with acute symptomatic incarcerated ventral hernia. Family is at bedside. Pain tolerable. REVIEW OF ORGAN SYSTEMS: CONSTITUTIONAL: No fevers or chills. Obese, BMI 32.7. RESPIRATORY: Denies pneumonia. Denies any troubles with breathing or dyspnea on exertion. CARDIOVASCULAR: Denies any chest pain, palpitations, or recent heart attacks. GASTROINTESTINAL: Denies fatty food intolerance. Denies change in bowel habits and gas bloat. GENITOURINARY: Denies any blood in urine or increased urinary frequency. PHYSICAL EXAM: VITALS: Reviewed CONSTITUTIONAL: Well developed and in no acute distress. EYES: Conjuctivae without sclera icterus. Extraocular movements grossly intact . HEAD, EARS, NOSE, THROAT: Moist buccal mucosa. Head is atraumatic, normocephalic. Hears conversational speech. No nasal drainage. RESPIRATORY: Non-labored respirations and equal bilateral excursions. No gross wheezes. CARDIOVASCULAR: Palpable 2+ radial pulses. ABDOMEN: Incarcerated umbilical hernia of the umbilicus. MUSCULOSKELETAL: No clubbing cyanosis or edema. SKIN: Warm and well perfused with good skin turgor. NEUROLOGIC: Cranial nerves II through XII grossly intact. No focal or lateralizing signs. PSYCH: Appropriate affect. Alert and oriented to person, place and time. Di splays appropriate insight. CLINCAL LABS: Reviewed. WBC normal 7.8. Hemoglobin normal 15.4. ASSESSMENT: 1. Incarcerated fat-containing ventral hernia 2. Gout 3. Multiple sclerosis PLAN: 1. Continue IV antibiotics 2. Benefits and risks of robotic ventral hernia described with placement of mesh. 3. Increase protein diet for optimal wound care and recovery. 4. Lifting restrictions over 4 pounds for 4 weeks described at least through October 27 Objective - Vital Signs Vital signs: Vital Signs Temp 97.7 F 09/26/21 07:53 Pulse 74 09/26/21 07:53 Resp 20 09/26/21 07:53 BP 145/101 09/26/21 07:53 Pulse Ox 96 09/26/21 07:53 FiO2 Intake & Output 09/25/21 09/26/21 09/26/21 18:59 06:59 18:59 Intake Total 1200 Balance 1200 Intake: Intake, IV Titration 1200 Amount 0.9% NaCl with KCl 20 Meq 1100 /l 1,000 ml @ 100 mls/hr IV .Q10H OLINDA Rx#: [id number] ceFAZolin 2 gm In Sodium 100 Chloride 0.9% 50 ml @ 100 mls/hr IVPB ONCE PRN Rx# :[id number] Other: Voiding Method Toilet # Voids 5 2 - Labs CBC & Chem 7: 09/25/21 05:58 09/25/21 05:58
[2021-09-26] MEDS: HYDROmorphone 0.5 MG/0.5 ML SYRINGE IVP PRN (20:26)
[2021-09-27] MEDS: 0.9% NACL WITH KCL 20 MEQ/L 1,000 ML IV SCH ×2 (01:24→16:19)
[2021-09-27] MEDS: AMPICILLIN-SULBACTAM 1.5 GM in SODIUM CHLORIDE 0.9% 50 ML IVPB SCH ×4 (01:26→20:52)
[2021-09-27] MEDS: allopurinoL 300 MG TAB PO SCH (07:07)
[2021-09-27] MEDS: CHOLECALCIFEROL 25 MCG (1000 IU) TABLET PO SCH (07:07)
[2021-09-27] MEDS: LOSARTAN-HCTZ 50-12.5 MG 1 EACH TAB PO SCH (07:07)
[2021-09-27] MEDS ORDERED: GABAPENTIN 300 MG CAP PO ONE (11:00)
[2021-09-27] MEDS ORDERED: MELOXICAM 7.5 MG TAB PO ONE (11:00)
[2021-09-27] MEDS ORDERED: ACETAMINOPHEN TAB 500 MG TAB PO ONE (11:00)
[2021-09-27] MEDS ORDERED: TAMSULOSIN 0.4 MG CAP.ER.24H PO ONE (11:00)
[2021-09-27] MEDS: PANTOPRAZOLE 40 MG/10 ML VIAL IV SCH (11:33)
[2021-09-27] MEDS: ENOXAPARIN 30 MG/0.3 ML SYRINGE SQ SCH (11:34)
[2021-09-27] MEDS ORDERED: IV FLUID CONTINUATION 1,000 ML IV ONE (13:28)
[2021-09-27] MEDS ORDERED: MIDAZOLAM 2 MG/2 ML VIAL IV ONE (14:24)
[2021-09-27] MEDS ORDERED: LACTATED RINGERS 1,000 ML IV ONE ×2 (14:34→16:41)
--- NOTE | 2021-09-27 14:45 | P.ANPRN ---
Procedure Note - Anesthesia - Nerve Block Performed Bilateral Erector Spinae Single Time Out Performed: Yes Date of Procedure: 09/27/21 Procedure Start Time: 14:23 Location of Patient: PreOp Indication: Acute Post-Operative Pain, Requested by Surgeon Sedation Type: Sedate with meaningful contact maintained Preparation: Sterile Prep, Sterile Dressing Position: Prone Catheter: None Needle Types: Pajunk Needle Gauge: 20 Ultrasound used to visualize needle placement: Yes Ultrasound used to observe medication spread: Yes Injectate: Other (see comment) (ropivacaine 0.25% 30 ml + decadron 2 mg per side) Blood Aspirated: No Pain Paresthesia on Injection Noted: No Resistance on Injection: Normal Image Stored and Saved: Yes Events: Uneventful and Well Tolerated
[2021-09-27] MEDS ORDERED: ONDANSETRON 4 MG/2 ML VIAL ONE (14:48)
[2021-09-27] MEDS ORDERED: ONDANSETRON 4 MG/2 ML VIAL IVP ONE (14:50)
[2021-09-27] MEDS ORDERED: ePHEDrine 50 MG/ML 1 ML VIAL ONE (15:20)
[2021-09-27] MEDS ORDERED: SUCCINYLCHOLINE CHLORIDE 100 MG/5 ML SYR IV ONE (15:20)
[2021-09-27] MEDS ORDERED: PHENYLEPHRINE-0.9% NACL SYG 1,000 MCG/10 ML SYRINGE ONE (15:20)
[2021-09-27] MEDS ORDERED: NEOSTIGMINE 1 MG/ML 10 ML VIAL ONE (15:20)
[2021-09-27] MEDS ORDERED: MIDAZOLAM 2 MG/2 ML VIAL ONE (15:20)
[2021-09-27] MEDS ORDERED: DEXAMETHASONE SOD PHOSPHATE 4 MG/ML 1 ML VIAL ONE (15:20)
[2021-09-27] MEDS ORDERED: KETOROLAC 15 MG/ML 1 ML VIAL ONE (15:20)
[2021-09-27] MEDS ORDERED: HYDROmorphone (PF) 1 MG/ML ONE (15:20)
[2021-09-27] MEDS ORDERED: fentaNYL (PF) 50 MCG/ML 2 ML AMP ONE (15:20)
[2021-09-27] MEDS ORDERED: LIDOCAINE 2% INJ 20 MG/ML (2 ML VIAL) ONE (15:20)
[2021-09-27] MEDS ORDERED: PROPOFOL 10 MG/ML 20 ML VIAL IV ONE (15:20)
[2021-09-27] MEDS ORDERED: GLYCOPYRROLATE 0.2 MG/ML 2 ML VIAL ONE (15:20)
[2021-09-27] MEDS ORDERED: ROCURONIUM 10 MG/ML (5 ML VIAL) IV ONE (15:20)
[2021-09-27] MEDS ORDERED: ROPIVACAINE 5 MG/ML 30 ML VIAL ONE (15:20)
[2021-09-27] MEDS ORDERED: HEPARIN SODIUM,PORCINE 5,000 UNIT/ML 1 ML VIAL ONE (15:20)
[2021-09-27] MEDS ORDERED: BUPIVACAIN-EPI 0.25%-1:200,000 30 ML VIAL SQ ONE (15:41)
--- NOTE | 2021-09-27 16:56 | P.OP ---
Date of Procedure: 09/27/21 Description of Procedure: SURGEON: NAT DIOP MD PREOPERATIVE DIAGNOSES: 1. Initial incarcerated ventral hernia with strangulation 2. Gout 3. Obesity due to excess calories, BMI 32.7 4. Multiple sclerosis POSTOPERATIVE DIAGNOSES: 1. Initial incarcerated ventral hernia with strangulation, 3 cm 2. Gout 3. Obesity due to excess calories, BMI 32.7 4. Multiple sclerosis OPERATION: 1. Robotic-assisted da Luisito Xi laparoscopic reduction and repair of initial ventral hernia with mesh, ventralight ST mesh 11.4 cm Anesthesia: GETA, regional, local Estimated Blood Loss (ml): 5 Pathology: 1. Incarcerated umbilical hernia COMPLICATIONS: None. Operative Findings: 1. Umbilical hernia defect 2 x 3 cm 2. Fascia repaired using #1 V-lock suture INDICATIONS: The patient is a 50-year-old male who presents acute onset abdominal pain for incarcerated umbilical hernia. Surgical intervention with laparoscopic versus robotic and open techniques were reviewed. Placement of mesh was also reviewed. Benefits and risks were thoroughly described. Informed consent was obtained. DESCRIPTION OF PROCEDURE: The patient was brought into the operating room and laid in supine position. After general induction, the abdomen had been prepped and draped in standard sterile fashion. Ioban draping was also placed. Prior to incision, a timeout protocol was confirmed with surgical team regarding the patient's name including procedures to be performed. The robot was primed prior to the procedure. A field block using local anesthetic was placed along hernia site including the proposed port sites. Initial incision was made with an #11 blade along the left upper quadrant. A 0 degree 5 mm laparoscopic trocar entry was performed and insufflated. Three 8 mm ports were placed along the left lateral abdominal wall under direct localization after exchanging the 5-mm for an 8 mm port. Placements of the ports were 15 cm from the target anatomy and 10 cm apart. Diagnostic laparoscopy demonstrated infarct and incarcerated umbilical ventral hernia containing fat. An accessory 12 mm port was placed at theleft upper quadrant for exchange of mesh including sutures. The [employer] Xi robot was previously primed, prepped and draped then docked from the right side of the patient onto the left side of the patient. I then sat at the robot [employer] console where working arms of the robot including Bovie cautery connected to robotic scissors, needle shuttle truck driver, and graspers placed by the blood donor unit assistant. Incarcerated preperitoneal fat contents were found along the umbilicus. The defects were reduced with preperitoneal fat with infarcted fat consistent with strangulation. The incarcerated contents were reduced as the peritoneal fat was cleaned from the abdominal wall. Next, hemostasis was checked with vessel sealer to decrease risks of bleeding. The hernia defect was oversewn using #1 nonabsorbable V-lock suture with fascial imbrication x 2. Next, ventralight ST mesh 11.4 cm was placed with the rough side towards the abdominal wall as to cover umbilical defect of 2 cm. 2-0 VLOC 9 inch nonabsorbable sutures were used to fixate the mesh. A final endoscopic imaging was obtained. All instruments and pneumoperitoneum were evacuated from the abdominal cavity. The da Luisito Xi robot was undocked from the patient. I re-scrubbed into the case for closure of incisions. The fascia of the 12-mm port was probed and less than 8-mm in size. The incisions were reapproximated using 4-0 Monocryl in an interrupted subcuticular fashion. Liquid glue was applied to the skin after cleansing the skin with normal saline and dilute hydrogen peroxide. An abdominal binder was placed. An umbilical dressing was placed prior. At the end of the procedure, needle, sponge, and instrument count had been verified correct by certified surgical first assistant. The patient was taken to the postanesthesia care unit in stable condition.
--- NOTE | 2021-09-27 17:00 | P.DS ---
Providers Date of admission: 09/24/21 13:49 Expected date of discharge: 09/27/21 Attending physician: Theodora Woodward Consults: 09/25/21 11:44 Consult Physician Routine Consulting Provider: Rodney Hill Consult Reason/Comments: Medical management Do you want consulting provider notified?: Already Contacted 09/27/21 08:00 Consult Physician Routine Consulting Provider: [facility] Consult Reason/Comments: Regional block Do you want consulting provider notified?: Yes Primary care physician: [facility] Course: POSTOPERATIVE DIAGNOSES: 1. Initial incarcerated ventral hernia with strangulation, 3 cm 2. Gout 3. Obesity due to excess calories, BMI 32.7 4. Multiple sclerosis COURSE: The patient is a 50-year-old male who presents acute onset abdominal pain for incarcerated umbilical hernia with possible strangulation. Patient was observed for bowel obstructive symptoms. He underwent hernia repair without sequelae. Schedule to minimize risk to mass infection. Prior to discharge, pain was controlled, he was tolerating diet and voiding spontaneously. No lifting over 4 pounds for 4 weeks reinforced until October 27. Follow up as outpatient in 1-2 weeks. Procedures: OPERATION: 1. Robotic-assisted da Luisito Xi laparoscopic reduction and repair of initial ventral hernia with mesh, ventralight ST mesh 11.4 cm Anesthesia: GETA, regional, local Estimated Blood Loss (ml): 5 Pathology: 1. Incarcerated umbilical hernia COMPLICATIONS: None. Operative Findings: 1. Umbilical hernia defect 2 x 3 cm 2. Fascia repaired using #1 V-lock suture Patient Condition at Discharge: Good Plan - Discharge Summary New Discharge Prescriptions: New Simethicone [Gas-X] 125 mg PO AC-TID PRN #20 capsule PRN Reason: Pain Acetaminophen Tab [Tylenol Tab] 1,000 mg PO Q6HR PRN #30 tablet PRN Reason: Pain Ibuprofen [Motrin] 600 mg PO Q8HR PRN #30 tab PRN Reason: Pain Continue allopurinoL [Zyloprim] 300 mg PO DAILY Cholecalciferol [Vitamin D3 (25 Mcg = 1000 Iu)] 25 mcg PO DAILY Discharge Medication List Cholecalciferol [Vitamin D3 (25 Mcg = 1000 Iu)] 25 mcg PO DAILY 09/24/21 [History] allopurinoL [Zyloprim] 300 mg PO DAILY 09/24/21 [History] Acetaminophen Tab [Tylenol Tab] 1,000 mg PO Q6HR PRN #30 tablet 09/27/21 [Rx] Ibuprofen [Motrin] 600 mg PO Q8HR PRN #30 tab 09/27/21 [Rx] Simethicone [Gas-X] 125 mg PO AC-TID PRN #20 capsule 09/27/21 [Rx] Follow up Appointment(s)/Referral(s): Rodney Hill MD [Primary Care Provider] - 1-2 days Theodora Woodward MD [STAFF PHYSICIAN] - 10/12/21 Patient Instructions/Handouts: *Surgery [facility] - Managing Your Pain After Surgery Without Opioids, Laparoscopic Herniorrhaphy (IP), Abdominal Binder (DC), Ventral Hernia Repair (GEN) Discharge Disposition: HOME SELF-CARE
[2021-09-27 17:05] VITALS: RESP 16
[2021-09-27] MEDS: HYDROmorphone 0.5 MG/0.5 ML SYRINGE IVP PRN (21:17)
[2021-09-28] MEDS: 0.9% NACL WITH KCL 20 MEQ/L 1,000 ML IV SCH ×2 (01:30→07:11)
[2021-09-28] MEDS: AMPICILLIN-SULBACTAM 1.5 GM in SODIUM CHLORIDE 0.9% 50 ML IVPB SCH ×2 (02:07→07:00)
[2021-09-28] MEDS: CHOLECALCIFEROL 25 MCG (1000 IU) TABLET PO SCH (07:01)
[2021-09-28] MEDS: allopurinoL 300 MG TAB PO SCH (07:02)
--- NOTE | 2021-09-28 07:02 | PN ---
PROGRESS NOTE 50-year-old white male he is stable. He is preop periumbilical hernia repair. Hypertension is better with hydrochlorothiazide losartan 50/12.5 one daily. He is having no chest pain. No shortness of breath. No lightheadedness, dizziness, syncope. Possibly being discharged home after umbilical hernia surgery. Lungs are clear. Cardiovascular S1-S2. Psych: Fair mood and affect. Neurologic: Cranial nerves intact. MMODL / IJN: [id number] /
[2021-09-28 07:06] VITALS: BP 116/76
[2021-09-28] MEDS: LOSARTAN-HCTZ 50-12.5 MG 1 EACH TAB PO SCH (07:07)
[2021-09-28] MEDS: PANTOPRAZOLE 40 MG/10 ML VIAL IV SCH (07:10)
[2021-09-28 08:10] VITALS: PULSE 79; TEMP 97.5
[2021-09-28] MEDS: ENOXAPARIN 30 MG/0.3 ML SYRINGE SQ SCH (11:36)
[2021-09-28] MEDS ORDERED: ACETAMINOPHEN TAB 500 MG TAB PO SCH (12:00)
--- NOTE | 2021-09-28 12:39 | P.PN ---
Progress Note - Text Progress Note Date: 09/28/21 Patient is status post Robotic repair of ventral hernia with mesh. His pain is controlled. He is tolerating diet. He is up and ambulating. He is afebrile. He is stable for discharge. Please refer to the discharge summary that was dictated yesterday.
== END 2021-09-28 13:45 | disposition home or self-care (01) | DRG 355 ==
LOC: EC 09:27 → 4SSUR 13:49
PROVIDERS: ADMIT Surgery Plastic and Reconstructive Surgery; ATTEND Surgery Plastic and Reconstructive Surgery
PROC: 8E0W4CZ Robotic Assisted Procedure of Trunk Region, Percutaneous Endoscopic Approach (ICD-10-PCS; 2021-09-27)
PROC: 0WUF4JZ Supplement Abdominal Wall with Synthetic Substitute, Percutaneous Endoscopic Approach (ICD-10-PCS; principal; 2021-09-27 07:30)
DX: K43.6 Other and unspecified ventral hernia with obstruction, without gangrene (principal); E66.09 Other obesity due to excess calories; Z68.32 Body mass index [BMI] 32.0-32.9, adult; E78.5 Hyperlipidemia, unspecified; G35 Multiple sclerosis; I10 Essential (primary) hypertension; M10.9 Gout, unspecified; Z79.899 Other long term (current) drug therapy; Z82.3 Family history of stroke; Z82.49 Family history of ischemic heart disease and other diseases of the circulatory system; Z90.49 Acquired absence of other specified parts of digestive tract
CPT/HCPCS: 36415; 64999; 74177; 80048; 80053; 82150; 83690; 85025; 88302; 93005; 96361; 96365; 99285

== ENCOUNTER → 2021-11-20 | Outpatient (CLI) | payer BC | END | disposition home or self-care (01) | LOC: LABWHC1 07:50 | PROVIDERS: ATTEND Psychiatry & Neurology Neurology | DX: G35 Multiple sclerosis (principal); Z79.899 Other long term (current) drug therapy | CPT/HCPCS: 36415; 86787 ==

== ENCOUNTER → 2022-07-07 | Outpatient (CLI) | payer BC ==
--- NOTE | 2022-07-07 09:38 | MR ---
EXAMINATION TYPE: MR brain wo/w con DATE OF EXAM: 07/07/2022 COMPARISON: Prior MRI July 07, 2021 HISTORY: MS, POST NEW MEDS BLURRY VISION LT EYE TECHNIQUE: Multiplanar, multisequence images of the brain and brainstem is performed without and with IV contras t, utilizing 11.5 mL intravenous Gadavist gadolinium contrast is administered intravenously. Demyeli nating disease protocol with additional Sagittal Flair sequence performed. FINDINGS: T2 Lesions Present : Yes Approximate Number of Lesions: Less than 10 tiny Locations Identified : Scattered Size of Reference Lesion(s): 1. 5 x 5 x 6 mm deep left parietal lesion axial image 15 and sagittal image 80 is stable from prior Enhancing Lesion(s) Present: Yes, punctate 2 mm enhancing focus high left frontal parietal junction a xial image 23 new from prior T1 Hypointense Lesion(s) Present: No Change from Prior: Stable Diffusion weighted images demonstrate no evidence of a recent infarct or other diffusion abnormality. There is no worrisome extra-axial fluid collection. The ventricular system and cisternal spaces ar e normal in size and appearance. The brain volume is age appropriate. Midline structures redemonstrate normal morphology. The craniocervical junction appears within marianna l limits. Post contrast images demonstrate no abnormal enhancement. The dural venous sinuses appear patent. The visualized sinuses are clear and the globes are intact. IMPRESSION: Mild nonspecific white matter changes redemonstrated. No significant change in size or ap pearance from prior MRI. There is single new 2 mm enhancing high left frontal parietal lesion on curr ent study.
== END | disposition home or self-care (01) ==
LOC: RADMRIMAIN 08:17
PROVIDERS: ATTEND Psychiatry & Neurology Neurology
DX: G35 Multiple sclerosis (principal); R90.82 White matter disease, unspecified; G93.9 Disorder of brain, unspecified
CPT/HCPCS: 70553; A9585